=== PATIENT | female | born 1975 | race Caucasian/White ===

== ENCOUNTER 2022-04-14 11:31 | Outpatient (CLI) | payer BC, SELFPAY ==
[2022-04-14 12:15] LABS: Basophils Percent Auto 0.5 % (0.2-1.2); Eosinophils Absolute Auto 0.4 K/mm3 (0-0.3); Eosinophils Percent Auto 6.6 % (0-4.4); Hematocrit 38.9 % (37.0-47.0); Hemoglobin 12.9 g/dL (12.0-15.0); Immature Granulocyte Absolute 0.02 K/mm3 (0.00-0.031); Immature Granulocyte Percent A 0.3 % (0-0.5); Lymphocytes Percent Auto 29.6 % (18.3-44.2); Mean Corpuscular HGB Conc 33.2 g/dl (32-36); Mean Corpuscular Hemoglobin 30.7 pg (26-34); Mean Corpuscular Volume 92.6 fl (80-100); Mean Platelet Volume 10.2 fl (7.4-10.4); Monocytes Absolute Auto 0.6 K/mm3 (0.1-0.6); Monocytes Percent Auto 10.3 % (2.6-8.5); Neutrophils Absolute Auto 3.2 K/mm3 (1.3-6.7); Neutrophils Percent Auto 52.7 % (45.5-73.1); Platelet Count Result 281 k/mm3 (150-375); Red Cell Distribution Width 12.5 % (11.5-14.5); White Blood Count 6.1 K/mm3 (4.5-10.0)
== END 2022-04-14 11:32 | disposition home or self-care (01) ==
PROVIDERS: PCP Nurse Practitioner Family; Visit Provider Obstetrics & Gynecology
DX: D21.9 Benign neoplasm of connective and other soft tissue, unspecified (principal)
CPT/HCPCS: 36415; 85025; 86850; 86900; 86901

== ENCOUNTER 2022-04-16 01:08 | Day surgery (SDC) | payer BC, SELFPAY ==
[2022-04-07 12:22] VITALS: BMI 27.3
--- NOTE | 2022-04-07 12:25 | PC.NURSE ---
Report to the Outpatient Waiting Room, entrance under the green pavilion located off [facility], at time 11:00 on date 04/16/22. Planned Procedure Time: 1:00. Time changes happen often and if your time is changed the preop area will call you the afternoon before. - You and your visitor will be asked to self-screen and do not enter if you have any COVID symptoms. - Only one visitor is requested with a max of two and NO children visitors are allowed at this time. - The patient visitor may be requested to leave or wait in car when not with patient due to distancing restrictions. - A mask is optional within the hospital. Patients may have clear liquids (water, carbonated beverages, clear teas, apple juice) until 3 hours prior to surgery (10:00) with a maximum of 20 ounces. - No food from midnight until time of surgery Take the following medications with a SIP of water the morning of surgery: AMLODIPINE Medications to discontinue per physician: VITAMINS Date to take last dose: 04/12/22 Please no make-up, nail citizen of [place], hairspray, perfume, deodorant, or body powder the day of surgery. No jewelry (including any body piercings) or valuables the day of surgery, leave them at home. Please take a shower or bath the night before, or the morning of, surgery with an antibacterial soap. Wear comfortable, loose fitting clothing. - Jewelry must be removed prior to entering the operating room. Rings and piercings that are not removed may be cut off. - The hospital will not accept responsibility for valuables. - Please leave all valuables, including medications, at home the day of surgery. If you are going home after surgery, a licensed o[employer] company truck driver must drive you home. - NO public transportation without another adult if you receive anesthesia. - We recommend that an adult stay with you for 24 hours following discharge. - We also recommend that you do not drive, make important decision, drink alcoholic beverages, or take any drugs that were not prescribed by your health care provider for at least 24 hours after your discharge time. Follow any additional instructions given to you from your surgeon. If you or anyone in your household have experienced Covid symptoms in the past week, please notify your surgeon or the nurse liaison at the phone number below for possible testing. Telephone instructions given to PT - ARABELLA WILSON and asked if any additional questions and then verbalized understanding. Patient advised to call surgeon office or pre surgery nurse liaison [phone] if any additional questions.
[2022-04-16] VITALS (9 sets, daily range): BP systolic 106–128; BP diastolic 67–88; PULSE 63–94; RESP 12–16; TEMP 36.6–36.9; O2SAT 96–100
--- NOTE | 2022-04-16 06:20 | P.HP_ITS ---
H&P: HPI History of Present Illness Date/Time: 04/16/22 06:20 Chief Complaint: Pain and prolapse Narrative: this is a 46-year-old female is admitted for hysterectomy bilateral salpingectomy. Risks and benefits reviewed including not exclusive of , aspiration, bleeding, transfusion, perforation injury to bowel, bladder, ureters, or other internal organs with the need for open laparotomy. She received the [employer] handout entitled hysterectomy as well as de Rudy handout. She had all questions answered. She asked to proceed [facility] Social History Social History Smoking status: Never smoker Alcohol intake: never Substance use: never Substance use type: does not use Living arrangements: with family Spiritual care concerns: No Meds Home Medications and Allergies Home Medications Medication Instructions Recorded Confirmed Type amlodipine 2.5 mg tablet 2.5 mg PO DAILY 04/07/22 04/07/22 History cholecalciferol (vitamin D3) 125 125 mcg PO DAILY 04/07/22 04/07/22 History mcg (5,000 unit) tablet (Vitamin D3) multivitamin 1 tablet PO DAILY 04/07/22 04/07/22 History Allergies Allergy/AdvReac Type Severity Reaction Status Date / Time No Known Allergies Allergy Unverified 04/07/22 12:20 Exam Const: General: cooperative, healthy appearing and comfortable Orientation/consciousness: oriented to person, oriented to place and oriented to time HENMT: Head: normal to inspection Resp: Effort & Inspection: normal respiratory effort Cardio: Rate: regular rate Rhythm: regular rhythm Heart sounds: S1 normal heart sound present and S2 normal heart sound present GI: Inspection: normal to inspection : External Female Exam: normal external appearance Speculum Exam - Vagina: normal appearance of the vagina Speculum Exam - Cervix: normal appearance of the cervix Bimanual exam- vagina & uterus: enlarged Bimanual Exam- Adnexa, other: normal adnexae Assessment and Plan Assessment and plan (1) Enlarged uterus: Code(s): N85.2 - Hypertrophy of uterus Status: Acute (2) Pelvic pain: Code(s): R10.2 - Pelvic and perineal pain Status: Acute Plan robotic total vaginal hysterectomy and bilateral salpingectomy
--- NOTE | 2022-04-16 06:23 | WPDHPUPDATE1 ---
History and Physical Update Update Date/Time: 04/16/22 06:23 History and Physical has been reviewed, including an updated exam of the patient. There are NO changes in the patient's condition. Risks, benefits, and alternatives have been discussed and questions answered. Patient agrees to proceed with procedure.
--- NOTE | 2022-04-16 11:44 | WPDANESEPPF ---
Anes - Initial Pre Proc Eval Procedure: Operation Date: 04/16/22 13:00 Proposed Procedures p Robotic Assisted Total Vaginal Hysterectomy, Bilateral Salpingectomy - Subhash Mcdaniel MD Date/Time: 04/16/22 11:44 Surgeon: Subhash Mcdaniel MD Pre Op Diagnosis: enlarge uterus,fibroids,dyspurenia,irreg bleeding Patient Data Age: 46 Gender: F Height: 1.57 m Weight: 68 kg Allergies Allergy/AdvReac Type Severity Reaction Status Date / Time No Known Allergies Allergy Unverified 04/07/22 12:20 Home Medications Medication Instructions Recorded Confirmed Type amlodipine 2.5 mg tablet 2.5 mg PO DAILY 04/07/22 04/07/22 History cholecalciferol (vitamin D3) 125 125 mcg PO DAILY 04/07/22 04/07/22 History mcg (5,000 unit) tablet (Vitamin D3) multivitamin 1 tablet PO DAILY 04/07/22 04/07/22 History hydrocodone 5 mg-acetaminophen 325 1 tablet PO Q4H PRN pain #30 tabs 04/16/22 Rx mg tablet Patient hx anesthesia problems: none Family hx anesthesia problems: none Results Review: All pre-operative results and documents have been reviewed as part of the pre-operative evaluation. [facility] Past Medical History Medical History Raynauds syndrome Social History Social History Smoking status: Never smoker Alcohol intake: never Substance use: never Substance use type: does not use Living arrangements: with family Spiritual care concerns: No Anes - Eval Final PreProcedure Day of Procedure 04/16/22 11:44 Patient weight: overweight Heart: regular rate and rhythm Lungs: clear to auscultation Airway: Mallampati scale class II Neurological: alert and oriented Last oral intake: >/= 8 hours ASA classification: II Emergent: no Anesthetic plan: proceed Anesthesia type and monitoring: general ETT and standard monitoring Results Review: All pre-operative results and documents have been reviewed as part of the pre-operative evaluation. Informed Consent: The patient's anesthetic plan and its attendant risks and benefits were discussed with the patient/family/POA. Questions were solicited and answers provided to the satisfaction of the patient/family/POA.
[2022-04-16] MEDS: LACTATED RINGERS 1,000 ML 30 ML IV CONT ×2 (11:50→15:50)
[2022-04-16] MEDS: ACETAMINOPHEN 500 MG TABLET 1000 MG PO (11:50)
[2022-04-16] MEDS: SCOPOLAMINE 1.5 MG PATCH TRANSDERM (11:50)
[2022-04-16] MEDS: KETOROLAC 15 MG/ML VIAL (*BKC) IV PUSH (11:50)
[2022-04-16] MEDS: ceFAZolin 2 GM/D5W 50 ML 2 GM/50 ML BAG IVPB (13:02)
--- NOTE | 2022-04-16 15:31 | P.OP_ITS ---
Procedure Note - Detailed Date of Procedure 04/16/22 Pre-op Diagnosis enlarge uterus,fibroids,dyspurenia,irreg bleeding Post-op Diagnosis Same Procedure Performed Robotic total vaginal hysterectomy and bilateral salpingectomy Surgeon Subhash Mcdaniel MD Anesthesia General Indications this is a 51-year-old female pelvic pain enlarged uterus and bleeding refractory to medical therapy Findings enlarged uterus. There were marked amount of adhesions anteriorly making the need for and he CO lysis. The tubes were status post tubal ligation. The ovaries appeared within normal limits Description of Procedure the patient is prepped draped in normal sterile fashion placed in the dorsal lithotomy position. Under excellent general trach anesthesia weighted speculum placed in posterior fornix vagina. Anterior lip of the cervix grasped with single-tooth tenaculum. Multiple attempts were made to sound the uterus and this was unsuccessful. A 16 [place] catheter was placed in the bladder and the remainder the instruments removed. The gloves were changed. A supraumbilical incision made the Veress needle passed in the abdomen. Abdomen filled with CO2 gas [id number]. The 8mm trocar advanced in the abdomen. Downside visualized no injury seen. Patient placed in Trendelenburg a and the right and left lateral quadrant incisions made. 8Mm trocars advanced under direct visualization assuring no injury. Right upper quadrant incision made and and 8mm trocar advanced under direct visualization assuring no injury. The robot was docked. Attention was turned to the director of group counseling program. Marked amount of adhesions were seen especially on the left but the bladder was well up to the fundus of the uterus. Using sharp dissection then layer by layer the bladder was brought down. The uterus had being manipulated from up above with a tenaculum as the cervix could not be penetrated safely. The left fallopian tube was then skeletonized in sharply dissected away from the ovary and left attached to the uterus. This was taken completed on with the right tube as well. The left utero-ovarian ligament was clamped, burned, cut brought to the round ligament in the front. Round ligament on the right was clamped burned and cut and the right utero-ovarian ligament clamped, burned, cut and brought to the level of previously cut round ligament. Next the cardinal broad ligaments were serially skeletonized along the lateral edge of the uterus and cervix clamping burning and cutting. At that point due to the difficulty in telling where the cervix met the uterus 3 layers a supracervical incision were undertaken. Until the cervix could be seen and safely seen away from the anterior bladder. These 3 pieces were then passed through the vagina. And the uterine fundus was passed as well with the tubes. The vagina was then closed with continuous running 0V lock from lateral edge to lateral edge back to the midline. Irrigation undertaken to clear blood loss estimated at25cc. The robot was undocked. The gas removed from the abdomen the incisions then closed with 4-0 Monocryl and glue after robot had been undocked and the trocars removed. The patient was awakened and went to recovery in satisfactory condition. All sponge, needle, instrument counts were correct. There were no immediate complication Estimated Blood Loss 25 Drains No Packing No Pathology Yes Complications No immediate complications Condition Stable Disposition PACU
[2022-04-16] MEDS: fentaNYL CITRATE INJ (*CRX) 100 MCG/2 ML VIAL 25 MCG IV PUSH ×4 (16:21→16:57)
--- NOTE | 2022-04-16 17:09 | PC.NURSE ---
Patient transferred to post room #[id number] via (stretcher ). Support person present. Oriented to unit, room, information board, rooming in, admission packet and security measures. Patient verbalizes understanding.
[2022-04-16] MEDS: KETOROLAC 30 MG/ML VIAL (*BKC) IV PUSH (17:37)
[2022-04-16] MEDS: DEXTROSE 5%/LACTATED RINGERS 1,000 ML 125 ML IV CONT (17:37)
[2022-04-16] MEDS: DOCUSATE SODIUM 100 MG CAPSULE PO (17:38)
[2022-04-17 01:43] VITALS: BP 122/68; PULSE 66; RESP 16; TEMP 36.6; O2SAT 100
[2022-04-17 04:43] VITALS: BP 101/63; PULSE 59; RESP 16; TEMP 36.7; O2SAT 97
[2022-04-17 06:28] LABS: Basophils Percent Auto 0.1 % (0.2-1.2); Hematocrit 35.3 % (37.0-47.0); Hemoglobin 11.8 g/dL (12.0-15.0); Immature Granulocyte Absolute 0.06 K/mm3 (0.00-0.031); Immature Granulocyte Percent A 0.4 % (0-0.5); Lymphocytes Absolute Auto 0.92 K/mm3 (0.9-3.2); Lymphocytes Percent Auto 6.6 % (18.3-44.2); Mean Corpuscular HGB Conc 33.4 g/dl (32-36); Mean Corpuscular Hemoglobin 31.5 pg (26-34); Mean Corpuscular Volume 94.1 fl (80-100); Mean Platelet Volume 11.1 fl (7.4-10.4); Monocytes Percent Auto 7.1 % (2.6-8.5); Neutrophils Absolute Auto 11.9 K/mm3 (1.3-6.7); Neutrophils Percent Auto 85.8 % (45.5-73.1); Platelet Count Result 246 k/mm3 (150-375); Red Blood Count 3.75 M/mm3 (4.2-5.4); Red Cell Distribution Width 12.5 % (11.5-14.5); White Blood Count 13.9 K/mm3 (4.5-10.0)
--- NOTE | 2022-04-17 08:04 | PM.DS ---
DS: Admitting Diagnosis Discharge Date 04/17/2022 Admitting Diagnosis enlarged uterus with pelvic pain/ DS: Discharge Diagnosis Discharge Diagnosis (1) Pelvic pain: Code(s): R10.2 - Pelvic and perineal pain Status: Acute (2) Enlarged uterus: Code(s): N85.2 - Hypertrophy of uterus Status: Acute DS: Summary Hospital Course Reason for hospitalization: patient was admitted for robotic total vaginal hysterectomy and bilateral salpingectomy Hospital Course: she underwent robotic total vaginal hysterectomy and bilateral salpingectomy. Her hospital course was unremarkable. She remained afebrile. She was up, voiding without difficulty, ambulating, eating regular diet, and generally without complaints. Time Spent with Patient Time attestation: Total time spent providing and/or coordinating discharge services: Exam Const: General: cooperative, healthy appearing and comfortable Nutritional Appearance: average body habitus Orientation/consciousness: oriented to person, oriented to place and oriented to time Resp: Effort & Inspection: normal respiratory effort Cardio: Rate: regular rate Rhythm: regular rhythm Heart sounds: S1 normal heart sound present and S2 normal heart sound present GI: Inspection: normal to inspection and incision ( Wounds are clean dry and intact) DS: Data Data Completed and Pending Pending studies at discharge: Pending at discharge 04/16/22 15:17 Surgical [PTH] Routine Labs on day of discharge: Labs from last 24 hours 04/17/22 05:04 WBC 13.9 H RBC 3.75 L Hgb 11.8 L Hct 35.3 L MCV 94.1 MCH 31.5 MCHC 33.4 RDW 12.5 Plt Count 246 MPV 11.1 H Immature Gran % (Auto) 0.4 Neut % (Auto) 85.8 H Lymph % (Auto) 6.6 L [place] % (Auto) 7.1 Eos % (Auto) 0.0 Baso % (Auto) 0.1 L Lymph # (Auto) 0.92 [place] # (Auto) 1.0 H Eos # (Auto) 0.0 Baso # (Auto) 0.0 Abs Immat Gran (auto) 0.06 H Absolute Neuts (auto) 11.9 H Absolute Nucleated RBC 0.0 Nucleated RBC % 0.0 Discharge Plan Discharge Patient Disposition: Home, Self-Care Stand Alone Forms: General Discharge Instructions Follow-up/Referrals: Subhash Díaz MD [Physician] - Discharge Medications: New hydrocodone-acetaminophen 5-325 mg tablet 1 tablet PO Q4H PRN (Reason: pain) Qty: 30 0RF No Action amlodipine 2.5 mg tablet 2.5 mg PO DAILY multivitamin Tablet 1 tablet PO DAILY cholecalciferol (vitamin D3) [Vitamin D3] 125 mcg (5,000 unit) Tablet 125 mcg PO DAILY
[2022-04-17 08:05] VITALS: BP 115/72; PULSE 64; RESP 16; TEMP 37.1; O2SAT 100
[2022-04-17] MEDS: SIMETHICONE 80 MG TAB.CHEW PO (08:06)
[2022-04-17] MEDS: IBUPROFEN 600 MG TABLET PO (08:06)
[2022-04-17] MEDS: DOCUSATE SODIUM 100 MG CAPSULE PO (08:06)
[2022-04-17] MEDS: ENOXAPARIN 40 MG/0.4 ML SYRINGE SUB-Q (08:07)
--- NOTE | 2022-04-17 08:39 | WPDANESPN ---
Anes - Prog Note Post-Op Date/Time: 04/17/22 08:39 Cardiovascular status: normal Respiratory status: normal Airway patency: baseline Mental status: baseline Post-Op hydration status: normal Vital Signs: Last Vital Signs Temp 37.1 C 04/17/22 08:05 Pulse 64 04/17/22 08:05 Resp 16 04/17/22 08:05 BP 115/72 04/17/22 08:05 Pulse Ox 100 04/17/22 08:05 O2 Del Method Room Air 04/16/22 17:30 O2 Flow Rate 8 04/16/22 16:05 Pain Score (VAS): 07/18 I/O: Intake & Output 04/16/22 04/17/22 04/17/22 23:59 07:59 15:59 Intake Total 500 700 Output Total 50 1900 Balance 450 -1200 Laboratory Tests 04/17/22 05:04 04/17/22 05:04 WBC 13.9 H RBC 3.75 L Hgb 11.8 L Hct 35.3 L MCV 94.1 MCH 31.5 MCHC 33.4 RDW 12.5 Plt Count 246 MPV 11.1 H Immature Gran % (Auto) 0.4 Neut % (Auto) 85.8 H Lymph % (Auto) 6.6 L [place] % (Auto) 7.1 Eos % (Auto) 0.0 Baso % (Auto) 0.1 L Lymph # (Auto) 0.92 [place] # (Auto) 1.0 H Eos # (Auto) 0.0 Baso # (Auto) 0.0 Abs Immat Gran (auto) 0.06 H Absolute Neuts (auto) 11.9 H Absolute Nucleated RBC 0.0 Nucleated RBC % 0.0 Post-procedural complaints: none Patient Feedback: Patient satisfied with anesthetic care.
== END 2022-04-17 10:12 | disposition home or self-care (01) ==
LOC: ANHSURGERY 11:01 → ANHOB2 17:21
PROVIDERS: PCP Nurse Practitioner Family; Visit Provider Obstetrics & Gynecology
PROC: (CPT 58552; principal; 2022-04-16 13:00)
DX: N85.2 Hypertrophy of uterus (principal); N73.6 Female pelvic peritoneal adhesions (postinfective); N93.9 Abnormal uterine and vaginal bleeding, unspecified; N94.10 Unspecified dyspareunia; R10.2 Pelvic and perineal pain
CPT/HCPCS: 58552; S2900; 36415; 85025; 88307; 99199; A9270; J0690; J1100; J1170; J1650; J1885; J2250; J2405; J2704; J2710; J3010; J7120; J7121